=== PATIENT | male | born 1945 | race Caucasian/White ===

== ENCOUNTER 2023-10-17 16:30 | Emergency (ER) | payer OTHER ==
[2023-10-17] MEDS: Lidocaine 1% 5 ML VIAL INJECT ONE (16:59)
== END 2023-10-17 17:26 | disposition home or self-care (01) ==
LOC: LB.ED 16:30
DX: S61.205A Unspecified open wound of left ring finger without damage to nail, initial encounter (principal); I10 Essential (primary) hypertension; E78.00 Pure hypercholesterolemia, unspecified; Z79.899 Other long term (current) drug therapy; W23.0XXA Caught, crushed, jammed, or pinched between moving objects, initial encounter
CPT/HCPCS: 12001; 99283